=== PATIENT | female | born 1990 | race Caucasian/White ===

== ENCOUNTER 2019-08-14 07:04 | Emergency (ER) | payer OTHER, SELFPAY ==
[2019-08-14] MEDS ORDERED: TETANUS & DIPHTHERIA TOX,ADULT 0.5 ML VIAL ONE (07:29)
[2019-08-14] MEDS ORDERED: LIDOCAINE 1% W/EPI 1:100,000 MDV 20 ML VIAL ONE (07:29)
[2019-08-14] MEDS ORDERED: DERMABOND SKIN ADHESIVE TOP ONE (07:29)
--- NOTE | 2019-08-14 07:54 | EDPHYS ---
Physician Documentation [facility] Name: Mandy Gross Age: 28 yrs Sex: Female : 1990 Arrival Date: 08/14/2019 Time: 07:07 Bed 2 Private MD: ED Physician Nicole Brown HPI: 08/13 07:48 This 28 yrs old Female presents to ER via Ambulatory with complaints of ma2 Laceration To Leg. 07:48 The laceration(s) is(are) located on the left leg. Onset: The symptoms/episode ma2 began/occurred suddenly, 1 hour(s) ago. Associated signs and symptoms: Pertinent positives: Pertinent negatives: dizziness, heavy bleeding, loss of consciousness, numbness distal to injury. The patient has not experienced similar symptoms in the past. 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 tw2 Historical: - Allergies: 07:20 No Known Allergies; ss - Home Meds: 07:20 None [Active]; ss - PMHx: 07:20 None; ss - PSHx: 07:20 None; ss - Immunization history:: Adult Immunizations up to date. - Social history:: Smoking status: Patient denies any tobacco usage or history of. Patient/guardian denies using alcohol, street drugs, The patient lives with spouse. - Family history:: not pertinent. - Hospitalizations: : No recent hospitalization is reported. ROS: 07:48 Constitutional: Negative for fever, chills, and weight loss. ma2 07:48 All other systems are negative. Exam: 07:48 Constitutional: This is a well developed, well nourished patient who is awake, alert, ma2 and in no acute distress. Head/Face: Normocephalic, atraumatic. Eyes: Pupils equal round and reactive to light, extra-ocular motions intact. Lids and lashes normal. Conjunctiva and sclera are non-icteric and not injected. Cornea within normal limits. Periorbital areas with no swelling, redness, or edema. ENT: Nares patent. No nasal discharge, no septal abnormalities noted. Tympanic membranes are normal and external auditory canals are clear. Oropharynx with no redness, swelling, or masses, exudates, or evidence of obstruction, uvula midline. Mucous membranes moist. Neck: Trachea midline, no thyromegaly or masses palpated, and no cervical lymphadenopathy. Supple, full range of motion without nuchal rigidity, or vertebral point tenderness. No Meningismus. Chest/axilla: Normal chest wall appearance and motion. Nontender with no deformity. No lesions are appreciated. Cardiovascular: Regular rate and rhythm with a normal S1 and S2. No gallops, murmurs, or rubs. Normal PMI, no JVD. No pulse deficits. Respiratory: Lungs have equal breath sounds bilaterally, clear to auscultation and percussion. No rales, rhonchi or wheezes noted. No increased work of breathing, no retractions or nasal flaring. Abdomen/GI: Soft, non-tender, with normal bowel sounds. No distension or tympany. No guarding or rebound. No evidence of tenderness throughout. Back: No spinal tenderness. No costovertebral tenderness. Full range of motion. Skin: 2 lacerations on left leg. 1. deep stallette laceration on medial lower leg 4 cm, neurvascular intact. 2. superfecial laceration on medial left thigh superficial 3 cm, neurovascular intact. otherwise Warm, dry with normal turgor. Normal color with no rashes, no lesions, and no evidence of cellulitis. MS/ Extremity: Pulses equal, no cyanosis. Neurovascular intact. Full, normal range of motion. Neuro: Awake and alert, GCS 15, oriented to person, place, time, and situation. Cranial nerves II-XII grossly intact. Motor strength 5/5 in all extremities. Sensory grossly intact. Cerebellar exam normal. Normal gait. Vital Signs: 07:15 BP 117 / 84; Pulse 85; Resp 16; Temp 98.6(TE); Pulse Ox 100% on R/A; Weight 58.97 kg; ss Height 5 ft. 7 in. (170.18 cm); Pain 5/10; 07:15 Body Mass Index 20.36 (58.97 kg, 170.18 cm) ss Laceration: 07:48 Wound Repair of 5cm ( 2.0in ) subcutaneous laceration to left leg. Irregularly shaped.. ma2 Distal neuro/vascular/tendon intact. Anesthesia: Local anesthetic administered with 10 mls of 1% lidocaine w/ Epi. Wound prep: Extensive cleansing with betadine with hibiclenz by biomedical electronics technician. Skin closed with 5 1-0 Sue using Dermabond. Dressed with Kerlix. Patient tolerated well. MDM: 07:22 Patient medically screened. ma2 07:52 Differential diagnosis: superficial laceration. Data reviewed: vital signs, nurses ma2 notes. Counseling: I had a detailed discussion with the patient and/or guardian regarding: the historical points, exam findings, and any diagnostic results supporting the discharge/admit diagnosis, the presence of at least one elevated blood pressure reading (>120/80) during this emergency department visit, the need for outpatient follow up. Response to treatment: There is no appreciated change of the patient's symptoms at this time, the patient's symptoms have mildly improved after treatment, the patient's condition has returned to base line. 08/13 07:57 Order name: Dermabond; Complete Time: 07:57 tw2 08/13 07:58 Order name: Wound Care; Complete Time: 07:58 tw2 Administered Medications: 07:50 Drug: Lidocaine-Epinephrine -1%: (1:100,000) 20 ml {Note: via dr. brown.} Volume: 20 tw2 ml; Route: Infiltration; 08:04 Drug: Tetanus-Diphtheria Toxoid Adult 0.5 ml {Toe Puncher: [employer]. Exp: tw2 05/17/2021. Lot #: [id number]. } Route: IM; Site: right deltoid; 08:10 Follow up: Response: No adverse reaction tw2 Disposition: 08/14/19 07:54 Discharged to Home. Impression: Laceration without foreign body, left lower leg. - Condition is Stable. - Discharge Instructions: Laceration Care, Adult, [id number]. - Medication Reconciliation Form, Thank You Letter, Antibiotic Education, Prescription Opioid Use form. - Follow up: Private Physician; When: Tomorrow; Reason: Continuance of care. - Notes: Remove sue in 2 weeks Signatures: Anne Marie Keys RN RN Macy France RN RN tw2 Nicole Brown MD MD mt2 Corrections: (The following items were deleted from the chart) 08:15 07:54 08/14/2019 07:54 Discharged to Home. Impression: Laceration without foreign body, tw2 left lower leg. Condition is Stable. Forms are Medication Reconciliation Form, Thank You Letter, Antibiotic Education, Prescription Opioid Use. Follow up: Private Physician; When: Tomorrow; Reason: Continuance of care. ma2
--- NOTE | 2019-08-14 07:54 | ER ---
Nurse's Notes [facility] Name: Mandy Gross Age: 28 yrs Sex: Female : 1990 Arrival Date: 08/14/2019 Time: 07:07 Bed 2 Private MD: Diagnosis: Laceration without foreign body, left lower leg Presentation: 08/13 07:15 Chief complaint: Patient states: laceration to L lower leg that occurred this morning ss after tripping over toys. No bleeding noted at this time. Coronavirus screen: Surgical mask placed on patient. Patient moved to private room, placed in contact and droplet isolation with eye protection until further assessment. Patient denies a cough. Patient denies shortness of breath or difficulty breathing. Patient denies measured and/or subjective temperature greater than 100.4F prior to today's visit. Patient denies travel on a cruise ship or to a country the [facility] currently lists as an affected area. Patient denies contact with known and/or suspected case of COVID-19. Ebola Screen: Patient denies exposure to infectious person. Patient denies travel to an Ebola-affected area in the 21 days before illness onset. Complicating Factors: There are no complicating factors for this patient. Initial Sepsis Screen: Does the patient meet any 2 criteria? No. Patient's initial sepsis screen is negative. Does the patient have a suspected source of infection? No. Patient's initial sepsis screen is negative. Risk Assessment: Do you want to hurt yourself or someone else? Patient reports no desire to harm self or others. Onset of symptoms was August 14, 2019. 07:15 Method Of Arrival: Ambulatory ss 07:15 Acuity: CASEY 4 ss Triage Assessment: 08:14 Pain: Denies pain. 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 tw2 Historical: - Allergies: 07:20 No Known Allergies; ss - Home Meds: 07:20 None [Active]; ss - PMHx: 07:20 None; ss - PSHx: 07:20 None; ss - Immunization history:: Adult Immunizations up to date. - Social history:: Smoking status: Patient denies any tobacco usage or history of. Patient/guardian denies using alcohol, street drugs, The patient lives with spouse. - Family history:: not pertinent. - Hospitalizations: : No recent hospitalization is reported. Screenin:15 Abuse screen: Denies threats or abuse. Nutritional screening: No deficits noted. tw2 Tuberculosis screening: No symptoms or risk factors identified. Fall Risk None identified. Assessment: 08:13 Reassessment: Patient appears in no apparent distress at this time. Patient and/or tw2 family updated on plan of care and expected duration. Pain level reassessed. Patient is alert, oriented x 3, equal unlabored respirations, skin warm/dry/pink. General: Appears in no apparent distress. slender, Behavior is calm, cooperative, appropriate for age. Musculoskeletal: Range of motion: intact in all extremities. Injury Description: Laceration sustained to left leg is jagged, 0.5 to 2.5 cm long, bleeding moderately, was sustained less than 30 minutes ago. Vital Signs: 07:15 BP 117 / 84; Pulse 85; Resp 16; Temp 98.6(TE); Pulse Ox 100% on R/A; Weight 58.97 kg; ss Height 5 ft. 7 in. (170.18 cm); Pain 5/10; 07:15 Body Mass Index 20.36 (58.97 kg, 170.18 cm) ED Course: 07:07 Patient arrived in ED. ag3 07:14 Trav Buckner PA is PHCP. jr8 07:14 Nicole Brown MD is Attending Physician. jr8 07:15 Macy France RN is Primary Nurse. tw2 07:15 Bed in low position. Call light in reach. tw2 07:19 Triage completed. ss 07:20 Arm band placed on left wrist. ss 07:28 Wound care: cleaned wounds to lower left leg and upper left thigh with chlorhexidine dh3 and normal saline, dressed with wet gauze. 08:13 No provider procedures requiring assistance completed. Patient did not have IV access tw2 during this emergency room visit. Administered Medications: 07:50 Drug: Lidocaine-Epinephrine -1%: (1:100,000) 20 ml {Note: via dr. brown.} Volume: 20 tw2 ml; Route: Infiltration; 08:04 Drug: Tetanus-Diphtheria Toxoid Adult 0.5 ml {Lead Refiner: [employer]. Exp: tw2 05/17/2021. Lot #: [id number]. } Route: IM; Site: right deltoid; 08:10 Follow up: Response: No adverse reaction tw2 Outcome: 07:54 Discharge ordered by . denisse 08:13 Discharged to home ambulatory. tw2 08:13 Condition: stable 08:13 Discharge instructions given to patient, Instructed on discharge instructions, follow up and referral plans. wound care, Demonstrated understanding of instructions, follow-up care, medications, wound care. 08:15 Patient left the ED. tw2 Signatures: Anne Marie Keys RN RN Trav Buckner PA PA jr8 Macy France RN RN tw2 Lali Osorio3 Nicole Brown MD MD mi2 Ana Laura Dupree 3
[2019-08-14 08:58] VITALS: BP 117/84; TEMP 98.6; O2SAT 100
== END 2019-08-14 08:15 | disposition home or self-care (01) ==
LOC: ER 07:04
PROC: 0JQP0ZZ Repair Left Lower Leg Subcutaneous Tissue and Fascia, Open Approach (ICD-10-PCS; principal; 2019-08-14)
DX: S81.812A Laceration without foreign body, left lower leg, initial encounter (principal); W18.09XA Striking against other object with subsequent fall, initial encounter; Y93.9 Activity, unspecified; Y92.9 Unspecified place or not applicable; Z23 Encounter for immunization
CPT/HCPCS: 90471; 90714; 99283

== ENCOUNTER 2019-08-23 15:45 | Emergency (ER) | payer SELFPAY ==
--- NOTE | 2019-08-23 17:47 | ER ---
Nurse's Notes [facility] Name: Mandy Gross Age: 28 yrs Sex: Female : 1990 Arrival Date: 08/23/2019 Time: 15:46 Bed Waiting Private MD: Diagnosis: Presentation: 08/22 15:49 Chief complaint: Patient states: needs josy removed from LLE. Site appears red and sv mild swelling noted. Coronavirus screen: Proceed with normal triage. Patient denies a cough. Patient denies shortness of breath or difficulty breathing. Patient denies measured and/or subjective temperature greater than 100.4F prior to today's visit. Patient denies travel on a cruise ship or to a country the [facility] currently lists as an affected area. Patient denies contact with known and/or suspected case of COVID-19. Ebola Screen: No symptoms or risks identified at this time. Risk Assessment: Do you want to hurt yourself or someone else? Patient reports no desire to harm self or others. Onset of symptoms was August 23, 2019. 15:49 Method Of Arrival: Ambulatory sv 15:49 Acuity: CASEY 3 sv 15:50 Initial Sepsis Screen: Does the patient meet any 2 criteria? HR > 90 bpm. No. Patient's sv initial sepsis screen is negative. Does the patient have a suspected source of infection? Yes: Skin breakdown/wound. Triage Assessment: 15:54 General: Appears in no apparent distress. comfortable, Behavior is calm, cooperative, sv appropriate for age. Pain: Denies pain. Neuro: Level of Consciousness is awake, alert, obeys commands, Gait is steady. Respiratory: Respiratory effort is even, unlabored. Historical: - Allergies: 15:50 No Known Allergies; sv - PSHx: 15:50 None; sv - Immunization history:: Adult Immunizations. - Social history:: Smoking status: . Vital Signs: 15:50 BP 105 / 65; Pulse 94; Resp 16; Temp 98.2; Pulse Ox 100% ; sv ED Course: 15:46 Patient arrived in ED. fj1 15:49 Arm band placed on. sv 15:50 Triage completed. sv Administered Medications: No medications were administered Outcome: 17:47 Patient left the ED. sv Signatures: Marichuy Zeng RN RN sv Kevin Rodriguez 1 Corrections: (The following items were deleted from the chart) 15:53 15:50 Resp 16bpm; Pulse Ox 100%; Temp 98.2F; sv sv
[2019-08-23 18:01] VITALS: BP 105/65; TEMP 98.2; O2SAT 100
== END 2019-08-23 17:47 | disposition left against medical advice (07) ==
LOC: ER 15:45
DX: Z53.21 Procedure and treatment not carried out due to patient leaving prior to being seen by health care provider (principal)
CPT/HCPCS: 99281

== ENCOUNTER 2019-08-25 08:43 | Emergency (ER) | payer SELFPAY ==
--- NOTE | 2019-08-25 09:16 | EDPHYS ---
Physician Documentation [facility] Name: Mandy Gross Age: 28 yrs Sex: Female : 1990 Arrival Date: 08/25/2019 Time: 08:44 Bed 13 Private MD: ED Physician Raman Gong HPI: 08/24 09:05 This 28 yrs old Female presents to ER via Ambulatory with complaints of mh7 Staple Removal. 09:05 The patient has sue on the left lower leg. Previous treatment: The patient was mh7 initially treated 12 day(s) ago, the care was rendered at [facility], Treatment type: The patient's original treatment included sue, Previous recheck: the patient has not been checked since the original treatment. Sutures/sue progress: The patient has no c/o's. The wound is well-healing with no redness, swelling, discharge, or dehiscence reported. Historical: - Allergies: 08:57 No Known Allergies; hb - Home Meds: 08:57 None [Active]; hb - PMHx: 08:57 None; hb - PSHx: 08:57 None; hb - Immunization history:: Adult Immunizations up to date. - Social history:: Smoking status: Patient denies any tobacco usage or history of. ROS: 09:05 Constitutional: Negative for fever, chills, and weight loss, Eyes: Negative for injury, mh7 pain, redness, and discharge, ENT: Negative for injury, pain, and discharge, Neck: Negative for injury, pain, and swelling, Cardiovascular: Negative for chest pain, palpitations, and edema, Respiratory: Negative for shortness of breath, cough, wheezing, and pleuritic chest pain, Abdomen/GI: Negative for abdominal pain, nausea, vomiting, diarrhea, and constipation, Back: Negative for injury and pain, : Negative for injury, bleeding, discharge, and swelling, Neuro: Negative for headache, weakness, numbness, tingling, and seizure, Psych: Negative for depression, anxiety, suicide ideation, homicidal ideation, and hallucinations, Allergy/Immunology: Negative for hives, rash, and allergies, Endocrine: Negative for neck swelling, polydipsia, polyuria, polyphagia, and marked weight changes, Hematologic/Lymphatic: Negative for swollen nodes, abnormal bleeding, and unusual bruising. Exam: 09:05 Constitutional: This is a well developed, well nourished patient who is awake, alert, mh7 and in no acute distress. Head/Face: Normocephalic, atraumatic. Cardiovascular: Regular rate and rhythm with a normal S1 and S2. No gallops, murmurs, or rubs. Normal PMI, no JVD. No pulse deficits. Respiratory: Lungs have equal breath sounds bilaterally, clear to auscultation and percussion. No rales, rhonchi or wheezes noted. No increased work of breathing, no retractions or nasal flaring. Abdomen/GI: Soft, non-tender, with normal bowel sounds. No distension or tympany. No guarding or rebound. No evidence of tenderness throughout. 09:05 Neuro: Awake and alert, GCS 15, oriented to person, place, time, and situation. Cranial nerves II-XII grossly intact. Motor strength 5/5 in all extremities. Sensory grossly intact. Cerebellar exam normal. Normal gait. Psych: Awake, alert, with orientation to person, place and time. Behavior, mood, and affect are within normal limits. 09:05 Musculoskeletal/extremity: Extremities: noted in the medial left lower leg: erythema, laceration, Healed wound with small area of mild surrounding erythema. No tenderness, warmth, swelling, induration, or discharge., ROM: intact in all extremities, Circulation is intact in all extremities. Pulses: are normal with no appreciated deficits, Perfusion: the patient is normally perfused throughout, Perfusion: the extremity is normally perfused throughout, Calf tenderness, is absent, Edema, is not appreciated, Sensation intact. Compartment Syndrome exam of affected extremity: is normal. no pain, no numbness, no tingling, no sensation deficit, no palor, no weak pulses, Joints: All joints are normal except Weight bearing: able to fully bear weight, without difficulty, Tendon exam: specific tendon testing normal through active and passive range of motion Calves: are non-tender. 09:05 Skin: Wound recheck: Staple laceration closure: the wound is healing well, no drainage, no swelling, mild erythema. Vital Signs: 08:53 BP 114 / 79; Pulse 69; Resp 16; Temp 97.2; Pulse Ox 100% ; Weight 61.23 kg; Height 5 hb ft. 7 in. (170.18 cm); Pain 2/10; 08:53 Body Mass Index 21.14 (61.23 kg, 170.18 cm) MDM: 08:58 Patient medically screened. [facility] 09:05 Data reviewed: vital signs, nurses notes. Counseling: I had a detailed discussion with [facility] the patient and/or guardian regarding: the historical points, exam findings, and any diagnostic results supporting the discharge/admit diagnosis, the need for outpatient follow up. Refusal of service: The patient/guardian displays adequate decision making capability and despite a detailed discussion of alternatives, benefits, risks, and consequences refuses: all lab tests, all X-rays. Administered Medications: No medications were administered Disposition: 08/25/19 09:15 Discharged to Home. Impression: Encounter for removal of sutures - Sue, Cellulitis of left lower limb. - Condition is Stable. - Discharge Instructions: Suture Removal, Care After, Cellulitis, Adult, [id number]. - Prescriptions for Keflex 500 mg Oral Capsule - take 1 capsule by ORAL route every 6 hours for 10 days; 40 capsule. Bactrim DS 800- 160 mg Oral Tablet - take 1 tablet by ORAL route every 12 hours for 10 days; 20 tablet. - Medication Reconciliation Form, Thank You Letter, Antibiotic Education, Prescription Opioid Use form. - Follow up: Private Physician; When: 1 - 2 days; Reason: Worsening of condition, Re-evaluation by your physician. Follow up: Rodney Lima MD; When: 1 - 2 days; Reason: Wound Recheck, Fever > 102 F, Worsening of condition. - Problem is an ongoing problem. - Symptoms have improved. Signatures: Mayelin Keller RN RN Raman Gong MD MD [facility] Corrections: (The following items were deleted from the chart) 09:26 09:15 08/25/2019 09:15 Discharged to Home. Impression: Encounter for removal of sutures hb - [place]; Cellulitis of left lower limb. Condition is Stable. Forms are Medication Reconciliation Form, Thank You Letter, Antibiotic Education, Prescription Opioid Use. Follow up: Private Physician; When: 1 - 2 days; Reason: Worsening of condition, Re-evaluation by your physician. Follow up: Rodney Lima; When: 1 - 2 days; Reason: Wound Recheck, Fever > 102 F, Worsening of condition. Problem is an ongoing problem. Symptoms have improved. 7
--- NOTE | 2019-08-25 09:16 | ER ---
Nurse's Notes [facility] Name: Mandy Gross Age: 28 yrs Sex: Female : 1990 Arrival Date: 08/25/2019 Time: 08:44 Bed 13 Private MD: Diagnosis: Encounter for removal of sutures-Sue;Cellulitis of left lower limb Presentation: 08/24 08:53 Chief complaint: Five sue to left inner lower leg 12 days ago, here for removal. hb Redness and warmth noted to area. Coronavirus screen: Proceed with normal triage. Ebola Screen: No symptoms or risks identified at this time. Initial Sepsis Screen: Does the patient meet any 2 criteria? No. Patient's initial sepsis screen is negative. Does the patient have a suspected source of infection? No. Patient's initial sepsis screen is negative. Risk Assessment: Do you want to hurt yourself or someone else? Patient reports no desire to harm self or others. Onset of symptoms was August 25, 2019. 08:53 Method Of Arrival: Ambulatory hb 08:53 Acuity: CASEY 4 hb Triage Assessment: 08:57 General: Appears in no apparent distress. Behavior is calm, cooperative. Pain: Pain hb currently is 2 out of 10 on a pain scale. EENT: No signs and/or symptoms were reported regarding the EENT system. Neuro: Level of Consciousness is awake, alert, obeys commands, Oriented to person, place, time, situation. Cardiovascular: Capillary refill < 3 seconds Patient's skin is warm and dry. Respiratory: Respiratory pattern is regular, symmetrical. Derm: Wound noted Other: wound closed by 5 sue noted to left inner lower leg, redness and warmth at around wound. Historical: - Allergies: 08:57 No Known Allergies; hb - Home Meds: 08:57 None [Active]; hb - PMHx: 08:57 None; hb - PSHx: 08:57 None; hb - Immunization history:: Adult Immunizations up to date. - Social history:: Smoking status: Patient denies any tobacco usage or history of. Screenin:55 Abuse screen: Denies threats or abuse. Denies injuries from another. Nutritional hb screening: No deficits noted. Tuberculosis screening: No symptoms or risk factors identified. Fall Risk None identified. Assessment: 08:55 Reassessment: Patient is alert/active/playful, equal unlabored respirations, skin hb warm/dry/pink. Dr. Pineda at bedside for staple removal. Vital Signs: 08:53 BP 114 / 79; Pulse 69; Resp 16; Temp 97.2; Pulse Ox 100% ; Weight 61.23 kg; Height 5 hb ft. 7 in. (170.18 cm); Pain 2/10; 08:53 Body Mass Index 21.14 (61.23 kg, 170.18 cm) hb ED Course: 08:44 Patient arrived in ED. am2 08:48 Raman Gong MD is Attending Physician. 7 08:55 Triage completed. hb 08:55 Patient has correct armband on for positive identification. Bed in low position. Call hb light in reach. 08:57 Arm band placed on. hb 09:13 Rodney Lima MD is Referral Physician. 7 09:25 Mayelin Keller, RN is Primary Nurse. hb 09:26 No provider procedures requiring assistance completed. Patient did not have IV access hb during this emergency room visit. Administered Medications: No medications were administered Outcome: 09:15 Discharge ordered by . mh7 09:26 Discharged to home ambulatory. hb 09:26 Condition: stable 09:26 Discharge instructions given to patient, Instructed on discharge instructions, follow up and referral plans. medication usage, Demonstrated understanding of instructions, follow-up care, medications, wound care, Prescriptions given X 2. 09:26 Patient left the ED. hb Signatures: Mayelin Keller, GEOVANNY RN Mandy Samaniego am2 Raman Gong MD MD 7 Corrections: (The following items were deleted from the chart) 08:59 08:59 General: hb hb
[2019-08-25 09:36] VITALS: BP 114/79; TEMP 97.2; O2SAT 100
== END 2019-08-25 09:26 | disposition home or self-care (01) ==
LOC: ER 08:43
DX: Z48.02 Encounter for removal of sutures (principal)
CPT/HCPCS: 99282